=== PATIENT | female | born 2000 | race American Indian/Alaskan Native ===

== ENCOUNTER 2021-04-30 14:05 | Inpatient (IN) | payer SELFPAY ==
[2021-04-30] MEDS ORDERED: ACETADOTE (ACETYLCYSTEINE IV) 15,000 MG in DEXTROSE 5% IN WATER 200 ML IV ONE (15:04)
[2021-04-30 15:36] LABS: INR 1.03 (0.87-1.13); Partial Thromboplastin Time 30.9 Sec. (24.2-36.6)
[2021-04-30 15:44] LABS: Alanine Aminotransferase 11 units/L (7-56); Albumin 4.1 g/dL (3.9-5); BUN/Creatinine Ratio 22; Blood Urea Nitrogen 11 mg/dL (7-17); Calcium 8.9 mg/dL (8.4-10.2); Hemolysis Index 8
[2021-04-30 15:58] LABS: Basophils % (Auto) 0.3 % (0.0-1.8); Hematocrit 36.8 % (30.3-42.9); Hemoglobin 11.4 gm/dl (10.1-14.3); Lymphocytes # (Auto) 1.4 K/mm3 (1.2-5.4); Lymphocytes % (Auto) 23.5 % (13.4-35.0); Mean Corpuscular HGB Conc 31 % (30-34); Mean Corpuscular Volume 78 fl (79-97); Monocytes # (Auto) 0.3 K/mm3 (0.0-0.8); Monocytes % (Auto) 4.5 % (0.0-7.3); Platelet Count 365 K/mm3 (140-440); Red Blood Count 4.73 M/mm3 (3.65-5.03); Red Cell Distribution Width 17.2 % (13.2-15.2)
[2021-04-30] MEDS ORDERED: ONDANSETRON 4 MG/2 ML INJ IV ONE (16:29)
--- NOTE | 2021-04-30 16:45 | Emergency Department Report ---
History of Present Illness - General Chief Complaint: Overdose Stated Complaint: MENTAL HEALTH Time Seen by Provider: 04/30/21 14:42 Source: patient Mode of arrival: Ambulatory Limitations: No Limitations - History of Present Illness Initial Comments: Patient is a 21-year-old F [place] female who overdosed on what we believed to be Tylenol. Patient states that at approximately 9 PM last night and again at 2 PM last night the patient took a [id number] pain medication for headache. Patient states that the first time she took the pills it was between 4 and 8 pills she believes. At 2 AM she took between 5 and 8 pills at that time as well. Patient states she knows that the pills are 500 mg and on the bottle was stated to did not take more than 4000 mg in 1 day.. This prompted the patient to come to the emergency department. Patient states she did have several episodes of nausea vomiting once last night and again twice this morning. Not complaining of any abdominal pain. States she has been having persistent headaches over the last 2months since she missed her menses 2 months ago. She has taken test which were negative. Denies any diarrhea abdominal pain cough cold congestion fevers or chills. Complaint: accidental overdose - Related Data Allergies Allergy/AdvReac Type Severity Reaction Status Date / Time No Known Allergies Allergy Verified 04/30/21 14:08 ED Review of Systems ROS: Stated complaint: MENTAL HEALTH Other details as noted in HPI Comment: All other systems reviewed and negative ED Physical Exam - General Limitations: No Limitations General appearance: alert, in no apparent distress - Head Head exam: Present: atraumatic, normocephalic - Eye Eye exam: Present: normal appearance, PERRL, EOMI - ENT ENT exam: Present: mucous membranes moist - Neck Neck exam: Present: normal inspection - Respiratory Respiratory exam: Present: normal lung sounds bilaterally. Absent: respiratory distress, wheezes, rales, rhonchi - Cardiovascular Cardiovascular Exam: Present: regular rate, normal rhythm, normal heart sounds. Absent: systolic murmur, diastolic murmur, rubs, gallop - GI/Abdominal GI/Abdominal exam: Present: soft, normal bowel sounds. Absent: distended, tenderness, guarding, rebound - Extremities Exam Extremities exam: Present: normal inspection - Back Exam Back exam: Present: normal inspection - Neurological Exam Neurological exam: Present: alert, oriented X3 - Psychiatric Psychiatric exam: Present: normal affect, normal mood - Skin Skin exam: Present: warm, dry, intact, normal color. Absent: rash ED Course Vital Signs 04/30/21 14:09 Temperature 98.1 F Pulse Rate 72 Respiratory 20 Rate Blood Pressure 155/98 O2 Sat by Pulse 100 Oximetry ED Medical Decision Making - Lab Data Result diagrams: 04/30/21 14:51 04/30/21 14:51 Lab Results 04/30/21 04/30/21 04/30/21 Range/Units 14:51 14:51 14:51 WBC 6.0 (4.5-11.0) K/mm3 RBC 4.73 (3.65-5.03) M/mm3 Hgb 11.4 (10.1-14.3) gm/dl Hct 36.8 (30.3-42.9) % MCV 78 L (79-97) fl MCH 24 L (28-32) pg MCHC 31 (30-34) % RDW 17.2 H (13.2-15.2) % Plt Count 365 (140-440) K/mm3 Lymph % (Auto) 23.5 (13.4-35.0) % [place] % (Auto) 4.5 (0.0-7.3) % Eos % (Auto) 0.0 (0.0-4.3) % Baso % (Auto) 0.3 (0.0-1.8) % Lymph # (Auto) 1.4 (1.2-5.4) K/mm3 [place] # (Auto) 0.3 (0.0-0.8) K/mm3 Eos # (Auto) 0.0 (0.0-0.4) K/mm3 Baso # (Auto) 0.0 (0.0-0.1) K/mm3 Seg Neutrophils % 71.7 H (40.0-70.0) % Seg Neutrophils # 4.3 (1.8-7.7) K/mm3 PT (12.2-14.9) Sec. INR (0.87-1.13) APTT (24.2-36.6) Sec. Sodium 138 (137-145) mmol/L Potassium 3.9 (3.6-5.0) mmol/L Chloride 104.0 (98-107) mmol/L Carbon Dioxide 22 (22-30) mmol/L Anion Gap 16 mmol/L BUN 11 (7-17) mg/dL Creatinine 0.5 L (0.6-1.2) mg/dL Estimated GFR > 60 ml/min BUN/Creatinine Ratio 22 % Glucose 124 H (65-100) mg/dL Calcium 8.9 (8.4-10.2) mg/dL Total Bilirubin 0.30 (0.1-1.2) mg/dL AST 16 (5-40) units/L ALT 11 (7-56) units/L Alkaline Phosphatase 87 (35-129) units/L Total Protein 8.2 (6.3-8.2) g/dL Albumin 4.1 (3.9-5) g/dL Albumin/Globulin Ratio 1.0 % HCG, Qual (Negative) Salicylates < 0.3 L (2.8-20.0) mg/dL Acetaminophen (10.0-30.0) ug/mL Plasma/Serum Alcohol (0-0.07) % 04/30/21 04/30/21 04/30/21 Range/Units 14:51 14:51 14:51 WBC (4.5-11.0) K/mm3 RBC (3.65-5.03) M/mm3 Hgb (10.1-14.3) gm/dl Hct (30.3-42.9) % MCV (79-97) fl MCH (28-32) pg MCHC (30-34) % RDW (13.2-15.2) % Plt Count (140-440) K/mm3 Lymph % (Auto) (13.4-35.0) % [place] % (Auto) (0.0-7.3) % Eos % (Auto) (0.0-4.3) % Baso % (Auto) (0.0-1.8) % Lymph # (Auto) (1.2-5.4) K/mm3 [place] # (Auto) (0.0-0.8) K/mm3 Eos # (Auto) (0.0-0.4) K/mm3 Baso # (Auto) (0.0-0.1) K/mm3 Seg Neutrophils % (40.0-70.0) % Seg Neutrophils # (1.8-7.7) K/mm3 PT (12.2-14.9) Sec. INR (0.87-1.13) APTT (24.2-36.6) Sec. Sodium (137-145) mmol/L Potassium (3.6-5.0) mmol/L Chloride (98-107) mmol/L Carbon Dioxide (22-30) mmol/L Anion Gap mmol/L BUN (7-17) mg/dL Creatinine (0.6-1.2) mg/dL Estimated GFR ml/min BUN/Creatinine Ratio % Glucose (65-100) mg/dL Calcium (8.4-10.2) mg/dL Total Bilirubin (0.1-1.2) mg/dL AST (5-40) units/L ALT (7-56) units/L Alkaline Phosphatase (35-129) units/L Total Protein (6.3-8.2) g/dL Albumin (3.9-5) g/dL Albumin/Globulin Ratio % HCG, Qual Negative (Negative) Salicylates (2.8-20.0) mg/dL Acetaminophen 23.9 (10.0-30.0) ug/mL Plasma/Serum Alcohol < 0.01 (0-0.07) % 04/30/21 Range/Units 14:51 WBC (4.5-11.0) K/mm3 RBC (3.65-5.03) M/mm3 Hgb (10.1-14.3) gm/dl Hct (30.3-42.9) % MCV (79-97) fl MCH (28-32) pg MCHC (30-34) % RDW (13.2-15.2) % Plt Count (140-440) K/mm3 Lymph % (Auto) (13.4-35.0) % [place] % (Auto) (0.0-7.3) % Eos % (Auto) (0.0-4.3) % Baso % (Auto) (0.0-1.8) % Lymph # (Auto) (1.2-5.4) K/mm3 [place] # (Auto) (0.0-0.8) K/mm3 Eos # (Auto) (0.0-0.4) K/mm3 Baso # (Auto) (0.0-0.1) K/mm3 Seg Neutrophils % (40.0-70.0) % Seg Neutrophils # (1.8-7.7) K/mm3 PT 14.6 (12.2-14.9) Sec. INR 1.03 (0.87-1.13) APTT 30.9 (24.2-36.6) Sec. Sodium (137-145) mmol/L Potassium (3.6-5.0) mmol/L Chloride (98-107) mmol/L Carbon Dioxide (22-30) mmol/L Anion Gap mmol/L BUN (7-17) mg/dL Creatinine (0.6-1.2) mg/dL Estimated GFR ml/min BUN/Creatinine Ratio % Glucose (65-100) mg/dL Calcium (8.4-10.2) mg/dL Total Bilirubin (0.1-1.2) mg/dL AST (5-40) units/L ALT (7-56) units/L Alkaline Phosphatase (35-129) units/L Total Protein (6.3-8.2) g/dL Albumin (3.9-5) g/dL Albumin/Globulin Ratio % HCG, Qual (Negative) Salicylates (2.8-20.0) mg/dL Acetaminophen (10.0-30.0) ug/mL Plasma/Serum Alcohol (0-0.07) % - Medical Decision Making Discussed case with poison control. Because she is unknown how much Tylenol the patient took and there was 2 different times were unable to apply the acetaminophen nomogram. Is recommended that the patient be started on acetylcysteine. Initial coags and liver enzymes are normal. 2 hours before the third bag finishes is recommended that the patient have INR less than 1.5 and AST and ALT less than 100. They also recommended a Tylenol level needs to be undetectable otherwise an additional 16-hour bag of acetylcysteine these to be ordered. Patient stable for admission at this time. Critical care attestation.: If time is entered above; I have spent that time in minutes in the direct care of this critically ill patient, excluding procedure time. ED Disposition Clinical Impression: Acetaminophen overdose, Persistent headaches Disposition: ADMITTED INPATIENT Is pt being admited?: Yes Does the pt Need Aspirin: No Condition: Stable Time of Disposition: 17:13
[2021-04-30] MEDS: ACETADOTE(ACETYLCYSTEINE IV) 5,000 MG in DEXTROSE 5% IN WATER 500 ML IV ONE ×2 (21:06→23:05)
[2021-04-30] MEDS ORDERED: ACETADOTE(ACETYLCYSTEINE IV) 10,000 MG in DEXTROSE 5% IN WATER 1,000 ML IV ONE (21:40)
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
[2021-04-30] MEDS ORDERED: MAGNESIUM HYDROXIDE (MOM) ORAL LIQD UDC PO PRN (22:10)
[2021-04-30] MEDS ORDERED: ACETAMINOPHEN 325 MG TAB PO PRN (22:10)
[2021-04-30] MEDS ORDERED: ONDANSETRON 4 MG/2 ML INJ IV PRN (22:10)
[2021-04-30] MEDS ORDERED: ALUM-MAG HYDROXIDE-SIMETHICONE 200-200-20MG/5ML ORAL LIQD 30 ML PO PRN (22:10)
[2021-04-30] MEDS ORDERED: METOCLOPRAMIDE 10 MG/2 ML INJ IV PRN (22:10)
[2021-04-30] MEDS ORDERED: HYDROmorphone 1 MG/1 ML INJ IV PRN (22:10)
[2021-04-30] MEDS ORDERED: oxyCODONE /ACETAMINOPHEN 5-325MG TAB PO PRN (22:10)
[2021-04-30] MEDS: FAMOTIDINE 20 MG/2 ML INJ IV SCH (23:00)
[2021-04-30 23:44] LABS: Alanine Aminotransferase 9 units/L (7-56); Albumin 3.6 g/dL (3.9-5); BUN/Creatinine Ratio 17; Blood Urea Nitrogen 10 mg/dL (7-17); Calcium 8.8 mg/dL (8.4-10.2); Hemolysis Index 0
[2021-05-01 05:58] LABS: Bilirubin,Urine NEG (Negative); Blood,Urine NEG (Negative); Color,Urine Yellow (Yellow); Mucus,Urine 2+ /HPF
[2021-05-01 07:22] LABS: Basophils % (Auto) 0.4 % (0.0-1.8); Eosinophils % (Auto) 0.7 % (0.0-4.3); Hematocrit 33.6 % (30.3-42.9); Hemoglobin 10.5 gm/dl (10.1-14.3); Lymphocytes # (Auto) 1.9 K/mm3 (1.2-5.4); Lymphocytes % (Auto) 31.4 % (13.4-35.0); Mean Corpuscular HGB Conc 31 % (30-34); Mean Corpuscular Volume 78 fl (79-97); Monocytes # (Auto) 0.4 K/mm3 (0.0-0.8); Monocytes % (Auto) 7.3 % (0.0-7.3); Platelet Count 316 K/mm3 (140-440); Red Blood Count 4.32 M/mm3 (3.65-5.03); Red Cell Distribution Width 17.3 % (13.2-15.2)
[2021-05-01 07:41] LABS: Amphetamine Screen,Urine Negative; Benzodiazepines Screen,Urine Negative; Cocaine Screen,Urine Negative; Methadone Screen,Urine Negative; Opiate Screen,Urine Negative
[2021-05-01 07:42] LABS: Alanine Aminotransferase 8 units/L (7-56); Albumin 3.4 g/dL (3.9-5); Blood Urea Nitrogen 8 mg/dL (7-17); Calcium 8.5 mg/dL (8.4-10.2); Hemolysis Index 6
[2021-05-01 07:43] LABS: BUN/Creatinine Ratio 16
[2021-05-01 08:06] LABS: Cannabinoid Screen,Urine PRESUMPTIVE POSITIVE
[2021-05-01] MEDS: HEPARIN 5,000 UNIT/1 ML VIAL SUB-Q SCH ×2 (11:13→22:40)
[2021-05-01] MEDS: FAMOTIDINE 20 MG/2 ML INJ IV SCH ×2 (11:17→22:37)
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
[2021-05-01] MEDS ORDERED: BUTALB/ACETAMINOPHEN/CAFFEINE TAB PO PRN (14:20)
[2021-05-01 14:27] LABS: INR 1.07 (0.87-1.13)
[2021-05-01 14:41] LABS: Alanine Aminotransferase 10 units/L (7-56)
[2021-05-01] MEDS: QUEtiapine 25 MG TAB PO SCH ×2 (15:41→22:37)
[2021-05-01] MEDS: SERTRALINE 25 MG TAB PO SCH (16:59)
--- NOTE | 2021-05-01 19:06 | Progress Note ---
Assessment and Plan (1) Tylenol overdose Current Visit: Yes Status: Acute (2) Acetaminophen overdose Current Visit: Yes Status: Acute Qualifiers: Encounter type: initial encounter Injury intent: undetermined intent Qualified Code(s): T39.1X4A - Poisoning by 4-Aminophenol derivatives, undetermined, initial encounter Plan to address problem: Patient initially said she took 10 Tylenol as ordered. Of 12 hours for headache and then later says that she had some suicidal thoughts. Patient does not appear depressed or suicidal. On the phone all the time. Patient made 1013. Patient initiated on IV acetylcysteine as per poison control recommendations IV fluids Mental health consult Monitor labs especially CMP frequently and Tylenol levels (3) Suicidal thoughts Current Visit: Yes Status: Acute Plan to address problem: Mental health consult (4) Morbid obesity Current Visit: Yes Status: Chronic Plan to address problem: Needs referral to bariatric surgery as outpatient to bariatric surgery department in the hospital--Dr. Brock (5) DVT prophylaxis Current Visit: Yes Status: Acute Plan to address problem: On anticoagulation GI prophylaxis Subjective Date of service: 05/01/21 Objective - Constitutional Vitals: Vital Signs - 12hr 05/01/21 05/01/21 05/01/21 08:00 10:00 12:00 Temperature Pulse Rate 77 Pulse Rate [ 77 75 From Monitor] Respiratory 16 18 Rate Blood Pressure O2 Sat by Pulse 100 100 Oximetry 05/01/21 05/01/21 05/01/21 12:49 15:02 15:11 Temperature 98.1 F Pulse Rate 87 Pulse Rate [ From Monitor] Respiratory 16 Rate Blood Pressure O2 Sat by Pulse 99 94 Oximetry 05/01/21 05/01/21 05/01/21 15:20 15:31 15:40 Temperature Pulse Rate 87 85 87 Pulse Rate [ From Monitor] Respiratory 15 16 16 Rate Blood Pressure 141/79 141/79 147/76 O2 Sat by Pulse 96 94 94 Oximetry 05/01/21 05/01/21 05/01/21 15:51 16:00 16:11 Temperature Pulse Rate 85 84 84 Pulse Rate [ From Monitor] Respiratory 14 15 17 Rate Blood Pressure 147/76 150/73 150/73 O2 Sat by Pulse 94 92 95 Oximetry 05/01/21 05/01/21 05/01/21 16:20 16:31 17:58 Temperature 98.1 F Pulse Rate 85 86 Pulse Rate [ From Monitor] Respiratory 15 14 Rate Blood Pressure 148/80 148/80 O2 Sat by Pulse 94 96 Oximetry - Labs CBC & Chem 7: 05/01/21 07:08 05/01/21 07:08 Labs: Abnormal lab results 04/30/21 04/30/21 04/30/21 Range/Units 05:45 22:52 22:52 MCV (79-97) fl MCH (28-32) pg RDW (13.2-15.2) % PT (12.2-14.9) Sec. Potassium 3.5 L (3.6-5.0) mmol/L Creatinine (0.6-1.2) mg/dL Glucose 123 H (65-100) mg/dL Albumin 3.6 L (3.9-5) g/dL Ur Specific [place] 1.036 H (1.003-1.030) Urine WBC (Auto) 8.0 H (0.0-6.0) /HPF U Epithel Cells (Auto) 17.0 H (0-13.0) /HPF Acetaminophen 5.0 L (10.0-30.0) ug/mL 05/01/21 05/01/21 05/01/21 Range/Units 07:08 07:08 07:08 MCV 78 L (79-97) fl MCH 24 L (28-32) pg RDW 17.3 H (13.2-15.2) % PT (12.2-14.9) Sec. Potassium 3.3 L (3.6-5.0) mmol/L Creatinine 0.5 L (0.6-1.2) mg/dL Glucose 106 H (65-100) mg/dL Albumin 3.4 L (3.9-5) g/dL Ur Specific [place] (1.003-1.030) Urine WBC (Auto) (0.0-6.0) /HPF U Epithel Cells (Auto) (0-13.0) /HPF Acetaminophen 5.0 L (10.0-30.0) ug/mL 05/01/21 Range/Units 14:00 MCV (79-97) fl MCH (28-32) pg RDW (13.2-15.2) % PT 15.1 H (12.2-14.9) Sec. Potassium (3.6-5.0) mmol/L Creatinine (0.6-1.2) mg/dL Glucose (65-100) mg/dL Albumin (3.9-5) g/dL Ur Specific [place] (1.003-1.030) Urine WBC (Auto) (0.0-6.0) /HPF U Epithel Cells (Auto) (0-13.0) /HPF Acetaminophen (10.0-30.0) ug/mL
[2021-05-01] MEDS: D5W/0.9% NACL 1,000 ML IV SCH (22:39)
[2021-05-02] MEDS: D5W/0.9% NACL 1,000 ML IV SCH (06:09)
[2021-05-02] MEDS: QUEtiapine 25 MG TAB PO SCH (09:49)
[2021-05-02] MEDS: HEPARIN 5,000 UNIT/1 ML VIAL SUB-Q SCH ×2 (09:49→09:52)
[2021-05-02] MEDS: SERTRALINE 25 MG TAB PO SCH (09:50)
[2021-05-02] MEDS ORDERED: FAMOTIDINE 20 MG TAB PO SCH (10:00)
--- NOTE | 2021-05-02 14:29 | Progress Note ---
Assessment and Plan (1) Tylenol overdose Current Visit: Yes Status: Acute (2) Acetaminophen overdose Current Visit: Yes Status: Acute Qualifiers: Encounter type: initial encounter Injury intent: undetermined intent Qualified Code(s): T39.1X4A - Poisoning by 4-Aminophenol derivatives, undetermined, initial encounter Plan to address problem: Patient initially said she took 10 Tylenol as ordered. Of 12 hours for headache and then later says that she had some suicidal thoughts. Patient does not appear depressed or suicidal. On the phone all the time. Patient made 1013. Patient initiated on IV acetylcysteine as per poison control recommendations IV fluids Mental health consult Monitor labs especially CMP frequently and Tylenol levels (3) Suicidal thoughts Current Visit: Yes Status: Acute Plan to address problem: Mental health consult (4) Morbid obesity Current Visit: Yes Status: Chronic Plan to address problem: Needs referral to bariatric surgery as outpatient to bariatric surgery department in the hospital--Dr. Brock (5) DVT prophylaxis Current Visit: Yes Status: Acute Plan to address problem: On anticoagulation GI prophylaxis Subjective Date of service: 05/02/21 Objective - Constitutional Vitals: Vital Signs - 12hr 05/02/21 05/02/21 05/02/21 02:31 03:00 03:31 Temperature Pulse Rate 77 79 78 Respiratory 15 15 24 Rate Blood Pressure 123/80 123/80 O2 Sat by Pulse 100 100 99 Oximetry 05/02/21 05/02/21 05/02/21 04:00 04:31 05:00 Temperature Pulse Rate 71 75 70 Respiratory 16 15 14 Rate Blood Pressure 127/75 127/75 125/77 O2 Sat by Pulse 99 99 96 Oximetry 05/02/21 05/02/21 05/02/21 05:31 06:00 06:19 Temperature 96.7 F L Pulse Rate 73 66 Respiratory 17 14 Rate Blood Pressure 125/77 126/67 O2 Sat by Pulse 97 97 Oximetry 05/02/21 05/02/21 05/02/21 06:31 07:01 07:31 Temperature Pulse Rate 68 66 80 Respiratory 15 15 19 Rate Blood Pressure 126/67 131/95 131/95 O2 Sat by Pulse 100 99 98 Oximetry 05/02/21 05/02/21 05/02/21 08:01 08:30 08:31 Temperature 98.4 F Pulse Rate 65 65 Respiratory 15 13 Rate Blood Pressure 148/90 148/90 O2 Sat by Pulse 96 98 Oximetry 05/02/21 05/02/21 05/02/21 09:01 09:31 10:00 Temperature Pulse Rate 84 75 80 Respiratory 18 19 Rate Blood Pressure 175/105 175/105 O2 Sat by Pulse 99 99 Oximetry 05/02/21 05/02/21 10:01 12:00 Temperature 98.4 F Pulse Rate 72 Respiratory Rate Blood Pressure 162/100 O2 Sat by Pulse 87 Oximetry - Labs CBC & Chem 7: 05/01/21 07:08 05/01/21 07:08
[2021-05-02 14:55] VITALS: BP 125/77
--- NOTE | 2021-05-02 15:16 | Event Note ---
Date: 05/02/21 The patient reports doing well, she denies having any current suicidal/homicidal ideation and denies hallucinations. Please discontinue 1013-Do not recommend inpatient admission at this time. Chief Of Field Operations will provide patient with psychiatric outpatient resources and safety plan.
--- NOTE | 2021-05-03 08:00 | Discharge Summary ---
Providers - Providers Date of Admission: 04/30/21 17:15 Date of discharge: 05/02/21 Attending physician: LORI MESSINA 05/01/21 06:59 Consult to Mental Health [CONS] Routine Reason For Exam: Suicidal thoughts Primary care physician: DEVELOPMENTAL SERVICES WORKER Hospitalization Condition: Stable Disposition: 01 HOME / SELF CARE / HOMELESS Final Discharge Diagnosis (Prints w/discharge instructions): --Acetaminophen overdose. --Morbid obesity. --Suicidal thoughts. --Major depressive disorder Time spent for discharge: 34 minutes Exam - Constitutional Vitals: Temp Pulse Resp BP Pulse Ox 98.4 F 84 12 125/77 100 05/02/21 12:00 05/02/21 14:31 05/02/21 14:31 05/02/21 14:31 05/02/21 14:31 Plan Activity: advance as tolerated Weight Bearing Status: Weight Bear as Tolerated Diet: low fat, low salt Care Plan Goals: Professional and Agency Contacts To help Resolve Crises(09/01) [place] Crisis Line: Suicide Prevention Line: Crisis Text Line: Text START to [phone] Emergency: 911 Outpatient COMMUNITY Behavioral Health Resources: [place]: [facility] [address] [place], [place] [address] [address] [facility] [address] [place] [address] Monday thru Monday - 8am - 5pm [facility] Address: [address] [place] [address] [place]: [facility] Address: [address] [place] [address] Monday thru Monday- 7am-2pm [facility] Address: [address] [place] [address] Monday thru Monday: 8:30AM-5PM Follow up with: KEYSHAWN CAPPS MD [Primary Care Provider] - 3-5 Days Prescriptions: QUEtiapine [SEROquel] 25 mg PO BID 30 Days #60 tablet Sertraline [Zoloft] 25 mg PO QDAY 30 Days #30 tab
--- NOTE | 2021-05-04 10:52 | Electrocardiograph Report ---
[facility] Test Date: 2021-05-01 Test Time: 07:55:11 Pat Name: JOHANNA FARLEY Department: Room: A266 1 Gender: F Transition Assistant: [place] : 2000 Requested By: BRENDAN QUINONES Order Number: [id number] Reading MD: Mikayla Meadows Measurements Intervals [place] Rate: 68 P: 20 NE: 197 QRS: 61 QRSD: 86 T: 36 QT: 411 QTc: 438 Interpretive Statements Sinus arrhythmia No previous ECG available for comparison Electronically Signed On 05-04-2021 10:52:31 EST by Mikayla Meadows
== END 2021-05-02 16:32 | disposition home or self-care (01) | DRG 918 ==
LOC: ED 14:05 → IMCU 17:15
PROVIDERS: ADMIT Internal Medicine; ATTEND Internal Medicine
DX: T39.1X1A Poisoning by 4-Aminophenol derivatives, accidental (unintentional), initial encounter (principal); Z68.41 Body mass index [BMI] 40.0-44.9, adult; T39.1X2A Poisoning by 4-Aminophenol derivatives, intentional self-harm, initial encounter; E66.01 Morbid (severe) obesity due to excess calories; F32.9 Major depressive disorder, single episode, unspecified; Y92.89 Other specified places as the place of occurrence of the external cause; Z20.822 Contact with and (suspected) exposure to COVID-19
CPT/HCPCS: 36415; 80053; 80307; 80320; 81001; 84450; 84460; 84703; 85025; 85610; 85730; 93005; G0378; J3490; J7060; G0480; J0132; J1170; J1644; J2405; J7042; J7070; U0003